=== PATIENT | female | born 1975 | race Caucasian/White ===

== ENCOUNTER → 2017-09-03 | Outpatient (CLI) | payer MEDICAID ==
--- NOTE | 2017-09-03 14:35 | MM ---
Reason for exam: follow-up at short interval from prior study. Last mammogram was performed 10 months ago. History: Family history of breast cancer in grandmother and breast cancer in aunt. Took hormonal contraceptives for 12 years beginning at age 17. Physical Findings: Nurse did not find any significant physical abnormalities on exam. MG 3D Diag Mammo W/Cad [facility] Bilateral CC and MLO view(s) were taken. Prior study comparison: November 06, 2016, bilateral MG 3d screening mammo w/cad. August 15, 2009, bilateral diagnostic digital mammog. The breast tissue is heterogeneously dense. This may lower the sensitivity of mammography. No suspicious abnormality in the left breast. The previously seen focal asymmetry in the upper outer quadrant on right breast a a middle depth is less conspicuous than on the prior exam and likely benign. These results were verbally communicated with the patient and result sheet given to the patient on 09/03/17. ASSESSMENT: Probably benign, BI-RAD 3 RECOMMENDATION: Follow-up diagnostic mammogram of the right breast in 6 months.
== END | disposition home or self-care (01) ==
LOC: RADMAMWWP 13:36
PROVIDERS: ATTEND Internal Medicine
DX: R92.8 Other abnormal and inconclusive findings on diagnostic imaging of breast (principal)
CPT/HCPCS: G0204; G0279

== ENCOUNTER → 2018-05-06 | Outpatient (CLI) | payer MEDICAID ==
--- NOTE | 2018-05-06 14:37 | MM ---
Reason for exam: follow-up at short interval from prior study. Last mammogram was performed 8 months ago. History: Family history of breast cancer in grandmother and breast cancer in aunt. Took hormonal contraceptives for 12 years beginning at age 17. Physical Findings: Nurse Summary: less than 1cm nodule in the left breast at 5 o'clock (nurse kp). MG 3D Diag Mammo W/Cad RT CC and MLO view(s) were taken of the right breast. Prior study comparison: September 03, 2017, bilateral MG 3d diag mammo w/cad [facility]. November 06, 2016, bilateral MG 3d screening mammo w/cad. The breast tissue is heterogeneously dense. This may lower the sensitivity of mammography. There is no discrete abnormality including area of concern. These results were verbally communicated with the patient and result sheet given to the patient on 05/06/18. ASSESSMENT: Incomplete: need additional imaging evaluation, BI-RAD 0 RECOMMENDATION: Ultrasound of the right breast. Manage patient on a clinical basis.
--- NOTE | 2018-05-06 14:38 | USB ---
Reason for exam: additional evaluation requested from abnormal screening. History: Family history of breast cancer in grandmother and breast cancer in aunt. Took hormonal contraceptives for 12 years beginning at age 17. US Breast Limited RT Right limited breast ultrasound including focal area of concern, retroareolar and axilla demonstrates no cystic or solid lesion seen. These results were verbally communicated with the patient and result sheet given to the patient on 05/06/18. ASSESSMENT: Negative, BI-RAD 1 RECOMMENDATION: Routine screening mammogram of both breasts in 4 months. Back on schedule. Manage patient on a clinical basis.
== END | disposition home or self-care (01) ==
LOC: RADMAMWWP 04-15 13:30
PROVIDERS: ATTEND Internal Medicine
DX: R92.8 Other abnormal and inconclusive findings on diagnostic imaging of breast (principal)
CPT/HCPCS: 77061; 77065

== ENCOUNTER 2018-12-14 06:12 | Day surgery (SDC) | payer MEDICAID ==
[2018-12-09 13:28] VITALS: BMI 23.1
--- NOTE | 2018-12-10 13:58 | HP ---
HISTORY AND PHYSICAL DATE OF SURGERY: 12/14/2018 HISTORY OF PRESENT ILLNESS: The patient is a 43-year-old 2, para 2-0-0-2, who presented to the office with a relatively longstanding history of menorrhagia. She has been using Lysteda for control of her bleeding for some time, which has worked to some extent but has requested a more definitive therapy. Her partner does have a vasectomy. Endometrial biopsy performed in the office demonstrated benign findings. PAST MEDICAL HISTORY: None. PAST SURGICAL HISTORY: Significant for arthroscopy of her right knee in the past as well a hernia repair in the distant past. She additionally had retinal keratotomy and a tonsillectomy as well as venous stripping for varicosities. She denies any anesthetic concerns. OBSTETRICAL HISTORY: 2, para 2-0-0-2 with 2 term vaginal deliveries without complications. Method of contraception is vasectomy. GYNECOLOGIC HISTORY: Unremarkable with no history of any infections to include STDs. FAMILY HISTORY: Noncontributory. 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 She is a nonsmoker and reports only occasional alcohol with no other social concerns. CURRENT MEDICATIONS: Lysteda 650 mg, 2 tablets t.i.d. for up to 5 days during menses. ALLERGIES: No known drug allergies. REVIEW OF SYSTEMS: Confined to history of present illness. PHYSICAL EXAMINATION: Vital signs are stable and the patient is afebrile. In general, this is a well- developed, well-nourished white female in no acute distress. Her heart has a regular rhythm and rate without murmur. Her lungs are clear to auscultation bilaterally in all benitez. Her abdomen is nondistended, has normoactive bowel sounds, soft, nontender, and without any palpable masses, hepatosplenomegaly, or hernias. Her extremities are without any cyanosis, clubbing, or edema and are nontender to palpation bilaterally. Pelvic examination demonstrates normal external genitalia and BUS with normal vaginal mucosa and cervix. There is no cervical motion tenderness. Uterus is 5 weeks' in size, anteverted, mobile, nontender, and normal in shape, though there was a possible suggestion of a fundal fibroid. At biopsy, the uterus sounded to approximately 8 cm. ASSESSMENT AND PLAN: Menorrhagia: The patient has a clear understanding that there are multiple different treatments aside from surgery, but has requested more definitive surgical intervention with diagnostic hysteroscopy and NovaSure endometrial ablation. The risks of these procedures were discussed at length to include the risks for bleeding, bleeding requiring transfusion, infection, and injury to local structures, most specifically uterine perforation, Asherman syndrome, and subsequent hematometra. She has understood all this concern and has agreed to proceed. We are scheduled for surgery on the morning of Friday, December 14, 2018 for the diagnoses as outlined above. MMODL / IJN: [id number] /
[~2018-12-14 06:12] MED LIST: DEXAMETHASONE SOD PHOSPHATE 10 MG/ML 1 ML VIAL IV ONE; LACTATED RINGERS 1,000 ML IV SCH; LIDOCAINE 1% 20 ML VIAL (10MG/ML) FOR IV START INTRADERMA PRN; ONDANSETRON 4 MG/2 ML VIAL IVP ONE; Pre Op ABX Message 1 EACH MISC MISCELLANE ONE; SCOPOLAMINE 1.5MG/72HR PATCH TRANSDERM ONE
[2018-12-14] MEDS ORDERED: LACTATED RINGERS 1,000 ML IV ONE ×2 (06:30→08:12)
[2018-12-14] MEDS ORDERED: LIDOCAINE 1% INJ 10MG/ML (20 ML MDV) ONE (07:31)
[2018-12-14] MEDS ORDERED: fentaNYL (PF) 50 MCG/ML 2 ML AMP ONE (07:31)
[2018-12-14] MEDS ORDERED: KETOROLAC 30 MG/ML 1 ML VIAL ONE (07:31)
[2018-12-14] MEDS ORDERED: MIDAZOLAM 2 MG/2 ML VIAL ONE (07:31)
[2018-12-14] MEDS ORDERED: PROPOFOL 10 MG/ML 20 ML VIAL IV ONE (07:31)
[2018-12-14 08:29] VITALS: TEMP 97.1
[2018-12-14 08:38] VITALS: RESP 16
--- NOTE | 2018-12-14 09:21 | OP ---
Date of Procedure: 12/14/18 Preoperative Diagnosis: #1. Menorrhagia Postoperative Diagnosis: Same Procedure(s) Performed: #1. Diagnostic hysteroscopy #2. NovaSure endometrial ablation Anesthesia: other (Gen. by face mask) Surgeon: Huseyin Enriquez Estimated Blood Loss (ml): 5 IV fluids (ml): 700 Urine output (ml): 75 Pathology: none sent Condition: stable Disposition: PACU Operative Findings: Preoperative pelvic examination demonstrated a roughly 5-6 week midplane mobile normal shaped uterus with normal adnexa bilaterally. Intraoperatively, the cervix was 4 cm in length was uterus sounded to approximately 10 cm. The hysteroscopic view of the uterus demonstrated a moderate amount of blood in the cavity as she was on her menses. The tubal ostia were not seen but there was no apparent pathology throughout. The settings for the NovaSure tool where a length of 6.0 cm, a width of 3.8 cm, and a total power of 125 W. Prior to successful application of the NovaSure tool, 2 tools were previously placed and set with cavity checks past but failed. The first tool failed secondary to vacuum failure on 3 separate occasions. It was replaced with a second 20 which failed secondary to a light on the base unit reading array position that would not allow the tool to unable. The third tool with the settings as above was successful. After a run time of 42 seconds, the base unit read "procedure complete." The postprocedural result was good but there was still some blood seen in the cavity. The patient is a potential candidate for vaginal hysterectomy should become necessary. Description of Procedure: The patient was prepped and draped in usual fashion after general anesthesia was administered by the anesthesiologist. A weighted speculum was placed and the bladder was drained of approximately 75 mL of clear mariama urine. The cervix was sent for 72 while uterus sounded to approximately 10 cm. Serial dilation was carried out to admit the diagnostic hysteroscope which was placed to the fundus and distended with saline. The bilateral tubal ostia regions were seen but there was clot and blood in the admixture making ClearView of them impossible. There was no apparent pathology to include polyps or fibroids. The scope was set aside and the the NovaSure tool placed and seated well. After seating, the cavity check was attempted and passed and the tool enabled. The run was started and the base unit then read vacuum failure. The tool was really enabled after second cavity check and the base unit again read "vacuum failure." The 2 was discarded and the second tool placed within the cavity. After the tool was placed and opened and the settings were made, the cavity check was attempted and passed without difficulty. The tool was enabled and we were unable to start the run as the base unit read "array position" failure. Another attempt was made and the tool again read array position failure. A third to was then used and placed into the endometrial cavity and opened with the settings of 6.0 for a length, 3.84 with for a total power 125 W. The tool was enabled and the run was started. After total run time of 42 seconds, the base unit read "procedure complete." The 2 was removed and discarded and the diagnostic hysteroscope placed in the fundus. The procedure appeared to be good thorough not particularly typical. There was still some blood present within the cavity. The montague did appear to be well charred. The scope was removed and set aside an Allis her mentation removed as well. There was no ongoing bleeding from either the cervix or from the tenaculum points. Estimated blood loss for the case was less than 5 mL. There were no complications aside from the failure of the first 2 tools. All sponge, instrument, and needle counts were correct. The patient tolerated the procedure well and proceeded to the recovery room in stable condition. KEN
[2018-12-14] MEDS ORDERED: IBUPROFEN 600 MG TAB PO PRN (09:24)
[2018-12-14] MEDS ORDERED: KETOROLAC 30 MG/ML 1 ML VIAL IVP PRN (09:24)
[2018-12-14] MEDS ORDERED: METOCLOPRAMIDE 5 MG/ML 2 ML VIAL IVP PRN (09:24)
[2018-12-14] MEDS ORDERED: ONDANSETRON 4 MG/2 ML VIAL IVP PRN (09:24)
[2018-12-14] MEDS ORDERED: Acetaminophen-Codeine 300-30mg TAB PO PRN ×2 (09:24)
[2018-12-14] MEDS ORDERED: diphenhydrAMINE 50 MG/ML 1 ML VIAL IVP PRN (09:24)
[2018-12-14] MEDS ORDERED: SIMETHICONE 80 MG CHEWABLE PO PRN (09:24)
[2018-12-14] MEDS ORDERED: LACTATED RINGERS 1,000 ML IV SCH (09:30)
[2018-12-14 09:37] VITALS: PULSE 74
[2018-12-14 09:43] VITALS: BP 116/75
== END 2018-12-14 10:04 | disposition home or self-care (01) ==
LOC: OR 06:12
PROVIDERS: ATTEND Obstetrics & Gynecology
DX: N92.0 Excessive and frequent menstruation with regular cycle (principal); Z79.899 Other long term (current) drug therapy
CPT/HCPCS: 81025; 58563; J2250; J1100; J2405; J2001; J3010; J1885; J2704

== ENCOUNTER → 2019-12-08 | Outpatient (CLI) | payer MEDICAID ==
--- NOTE | 2019-12-09 11:11 | MM ---
Reason for exam: screening (asymptomatic). Last mammogram was performed 1 year and 7 months ago. History: Family history of breast cancer in grandmother and breast cancer in aunt. Took hormonal contraceptives for 2 years beginning at age 17. Physical Findings: A clinical breast exam by your physician is recommended on an annual basis and results should be correlated with mammographic findings. MG 3D Screening Mammo W/Cad Bilateral CC and MLO view(s) were taken. Prior study comparison: May 06, 2018, right breast MG 3d diag mammo w/cad RT. September 03, 2017, bilateral MG 3d diag mammo w/cad [facility]. The breast tissue is heterogeneously dense. This may lower the sensitivity of mammography. No suspicious abnormality. No significant changes when compared with prior studies. ASSESSMENT: Negative, BI-RAD 1 RECOMMENDATION: Routine screening mammogram of both breasts in 1 year.
== END | disposition home or self-care (01) ==
LOC: RADMAMWWP 13:18
PROVIDERS: ATTEND Internal Medicine
DX: Z12.31 Encounter for screening mammogram for malignant neoplasm of breast (principal); Z80.3 Family history of malignant neoplasm of breast
CPT/HCPCS: 77063; 77067

== ENCOUNTER → 2020-10-04 | Outpatient (CLI) | payer MEDICAID | END | disposition home or self-care (01) | LOC: LABWHC1 12:58 | PROVIDERS: ATTEND Pediatrics Pediatric Infectious Diseases | DX: Z03.818 Encounter for observation for suspected exposure to other biological agents ruled out (principal) | CPT/HCPCS: 87635; C9803 ==

== ENCOUNTER → 2020-10-05 | Outpatient (CLI) | payer MEDICAID | END | disposition home or self-care (01) | LOC: LABWHC1 14:12 | PROVIDERS: ATTEND Pediatrics Pediatric Infectious Diseases | DX: Z03.818 Encounter for observation for suspected exposure to other biological agents ruled out (principal); Z20.828 Contact with and (suspected) exposure to other viral communicable diseases | CPT/HCPCS: 87635; C9803 ==

== ENCOUNTER → 2020-12-20 | Outpatient (CLI) | payer MEDICAID ==
--- NOTE | 2020-12-25 08:45 | MM ---
Reason for exam: screening (asymptomatic). Last mammogram was performed 1 year ago. History: Family history of breast cancer in grandmother and breast cancer in aunt. Taking hormonal contraceptives beginning at age 17. Physical Findings: A clinical breast exam by your physician is recommended on an annual basis and results should be correlated with mammographic findings. MG 3D Screening Mammo W/Cad Bilateral CC and MLO view(s) were taken. Prior study comparison: December 08, 2019, bilateral MG 3d screening mammo w/cad. May 06, 2018, right breast MG 3d diag mammo w/cad RT. The breast tissue is heterogeneously dense. This may lower the sensitivity of mammography. No significant changes when compared with prior studies. ASSESSMENT: Benign, BI-RAD 2 RECOMMENDATION: Routine screening mammogram of both breasts in 1 year.
== END | disposition home or self-care (01) ==
LOC: RADMAMWWP 07:18
PROVIDERS: ATTEND Obstetrics & Gynecology
DX: Z12.31 Encounter for screening mammogram for malignant neoplasm of breast (principal)
CPT/HCPCS: 77063; 77067

== ENCOUNTER → 2022-02-26 | Outpatient (CLI) | payer MEDICAID ==
--- NOTE | 2022-02-27 10:21 | MM ---
Reason for exam: screening (asymptomatic). Last mammogram was performed 1 year and 2 months ago. History: Family history of breast cancer in sister at age 40, breast cancer in grandmother, and breast cancer in aunt. Taking hormonal contraceptives beginning at age 17. Physical Findings: A clinical breast exam by your physician is recommended on an annual basis and results should be correlated with mammographic findings. MG 3D Screening Mammo W/Cad Bilateral CC and MLO view(s) were taken. Prior study comparison: December 20, 2020, bilateral MG 3d screening mammo w/cad. September 03, 2017, bilateral MG 3d diag mammo w/cad [facility]. The breast tissue is heterogeneously dense. This may lower the sensitivity of mammography. There is no discrete abnormality. ASSESSMENT: Negative, BI-RAD 1 RECOMMENDATION: Routine screening mammogram of both breasts in 1 year.
== END | disposition home or self-care (01) ==
LOC: RADMAMWWP 15:45
PROVIDERS: ATTEND Internal Medicine
DX: Z12.31 Encounter for screening mammogram for malignant neoplasm of breast (principal); Z80.3 Family history of malignant neoplasm of breast
CPT/HCPCS: 77063; 77067

== ENCOUNTER → 2022-04-17 | Outpatient (CLI) | payer MEDICAID ==
--- NOTE | 2022-04-17 16:49 | US ---
EXAMINATION TYPE: US venous doppler duplex LE DATE OF EXAM: 04/17/2022 10:39 AM COMPARISON: NONE CLINICAL HISTORY: M79.89 SWELLING. Bilateral leg swelling x 3 days SIDE PERFORMED: Bilateral TECHNIQUE: The lower extremity deep venous system is examined utilizing real time linear array sonog magaly with graded compression, doppler sonography and color-flow sonography. VESSELS IMAGED: Common Femoral Vein Deep Femoral Vein Greater Saphenous Vein * Femoral Vein Popliteal Vein Small Saphenous Vein * Proximal Calf Veins (* superficial vessels) Right Leg: Appears negative for DVT Left Leg: Appears negative for DVT IMPRESSION: 1. Bilateral lower extremity ultrasound negative for deep venous thrombosis.
== END | disposition home or self-care (01) ==
LOC: RADUSWWP 10:11
PROVIDERS: ATTEND Internal Medicine
DX: M79.89 Other specified soft tissue disorders (principal)
CPT/HCPCS: 93970

== ENCOUNTER → 2022-05-29 | Outpatient (CLI) | payer MEDICAID ==
--- NOTE | 2022-05-29 12:19 | CA ---
Stress Echo Report Jennifer Mallory Age: 46 Gender: F : 1975 Exam Date: 05/29/2022 10:20 Exam Location: [place] Stress Ht (in): 67 Wt (lb): 200 Ordering Physician: Cody Maki MD Referring Physician: AAMIR, [facility] Nurse Practitioner: Michelle Agee RD Technologist Procedure CPT: Indication: R07.9 ICD-9 Codes: Rhythm: Patient History: Cardiac Medications: Medications in past 24 hours: Contrast: Stress Results Protocol: Faraz Total dose(mL): Exercise Duration (min:sec): 7:[address] Depression (mm): Angina Score: Clayton Score: METS: 9.1 Resting HR: 78 Resting BP: 120 / 70 Peak HR: 166 Peak BP: 200 / 81 Max Predicted HR: 175 95 % Max Predicted HR Target HR: 149 Double Product: [id number] Stress Summary: BP Response: Reason for Termination: Reached target hr. Cardiac Symptoms: No symtoms ECG Analysis Resting ECG: Normal sinus rhythm normal axis normal intervals Stress ECG: No evidence of ST segment depression Arrhythmia: Grade PVCs Echo Analysis Resting Echo: Normal left ventricular size wall motion systolic function Peak Echo Analysis: There is normal hyperdynamic response of the anterior wall lateral wall septum Exercise induced hypokinesis involving basilar and mid inferior wall MEASUREMENTS (Male/Female) Normal Values CONCLUSIONS average exercise tolerance Negative stress test by EKG criteria Abnormal stress echo Dr. Too Llanes MD (Electronically Signed) Final Date: 29 May 2022 12:18
== END | disposition home or self-care (01) ==
LOC: RADNMMAIN 09:48
PROVIDERS: ATTEND Internal Medicine
DX: R94.39 Abnormal result of other cardiovascular function study (principal)
CPT/HCPCS: 93351

== ENCOUNTER → 2022-08-12 | Outpatient (CLI) | payer MEDICAID ==
[2022-08-12 14:44] LABS: HCT 38.7 % (37.2-46.3); HGB 12.5 g/dL (12.0-15.0); MCHC 32.3 g/dL (32.0-37.0); MCV 86.6 fL (80.0-97.0); Mean Platelet Volume 10.4 fL (9.5-12.2); NRBC Per 100 WBC 0 /100 WBCS (0.0-0.0); Platelet Count 228 X 10*3/uL (140-440); RBC 4.47 X 10*6/uL (4.10-5.20); WBC 6.69 X 10*3/uL (4.50-10.00)
[2022-08-12 14:57] LABS: ALT 57 U/L (8-44); AST 37 U/L (13-35); African American GFR (CKD) 88.9 (60.0-200.0); Albumin 4.4 g/dL (3.8-4.9); Albumin/Globulin Ratio 1.63 (1.60-3.17); Alkaline Phosphatase 71 U/L (41-126); BUN/Creat Ratio 11.33 Ratio (12.00-20.00); Blood Urea Nitrogen 10.2 mg/dL (9.0-27.0); Calcium 9.5 mg/dL (8.7-10.3); Carbon Dioxide 23.1 mmol/L (20.0-27.5); Chloride 103 mmol/L (96-109); Chol/HDL Ratio 5.92 Ratio; Globulin 2.7 g/dL (1.6-3.3); Glucose 108 mg/dL (70-110); LDL Cholesterol,Calculated 155.1 mg/dL (0.0-131.0); Non-African American GFR(CKD) 76.7 (60.0-200.0); Potassium 4.2 mmol/L (3.5-5.5); Sodium 138 mmol/L (135-145); Total Protein 7.1 g/dL (6.2-8.2)
[2022-08-12 15:05] LABS: Appearance,Urine Clear (Clear); Bilirubin,Urine Negative (Negative); Blood,Urine Negative (Negative); Color,Urine Yellow (Yellow); Ketones,Urine Negative (Negative); Nitrite,Urine Negative (Negative); PH, Urine 5.5 (5.0-8.0); Specific Gravity,Urine 1.019 (1.001-1.030); Urobilinogen,Urine 0.2 (0.2,1.0)
== END | disposition home or self-care (01) ==
LOC: LABMAIN 07:13
PROVIDERS: ATTEND Internal Medicine
DX: Z00.00 Encounter for general adult medical examination without abnormal findings (principal); E78.2 Mixed hyperlipidemia
CPT/HCPCS: 36415; 80053; 80061; 81003; 84443; 85027

== ENCOUNTER → 2022-12-31 | Outpatient (CLI) | payer MEDICAID ==
[2022-12-31 12:41] LABS: Appearance,Urine Clear (Clear); Bilirubin,Urine Negative (Negative); Blood,Urine Negative (Negative); Color,Urine Yellow; Glucose,Urine (UA) Negative (Negative); Ketones,Urine Negative (Negative); Leukocyte Esterase,Urine Negative (Negative); Nitrite,Urine Negative (Negative); Protein,Urine Negative (Negative); Specific Gravity,Urine 1.023 (1.001-1.035); Urobilinogen,Urine <2.0 mg/dL (<2.0)
[2022-12-31 18:38] LABS: HCT 39.1 % (37.2-46.3); HGB 12.8 g/dL (12.0-15.0); MCH 28.7 pg (27.0-32.0); MCHC 32.7 g/dL (32.0-37.0); MCV 87.7 fL (80.0-97.0); Mean Platelet Volume 10.4 fL (9.5-12.2); NRBC Per 100 WBC 0 /100 WBCS (0.0-0.0); Platelet Count 215 X 10*3/uL (140-440); RBC 4.46 X 10*6/uL (4.10-5.20); RDW 13.5 % (11.5-14.5)
[2022-12-31 19:16] LABS: ALT 79 U/L (8-44); AST 42 U/L (13-35); African American GFR (CKD) 91.8 (60.0-200.0); Albumin 4.5 g/dL (3.8-4.9); Albumin/Globulin Ratio 1.86 (1.60-3.17); Alkaline Phosphatase 84 U/L (41-126); Blood Urea Nitrogen 12.7 mg/dL (9.0-27.0); Calcium 9.8 mg/dL (8.7-10.3); Carbon Dioxide 24.8 mmol/L (20.0-27.5); Chloride 101 mmol/L (96-109); Chol/HDL Ratio 4.91 Ratio; Globulin 2.4 g/dL (1.6-3.3); Glucose 134 mg/dL (70-110); LDL Cholesterol,Calculated 139.6 mg/dL (0.0-131.0); Non-African American GFR(CKD) 79.2 (60.0-200.0); Potassium 3.7 mmol/L (3.5-5.5); Sodium 139 mmol/L (135-145)
== END | disposition home or self-care (01) ==
LOC: LABWHC1 11:26
PROVIDERS: ATTEND Family Medicine
DX: Z00.00 Encounter for general adult medical examination without abnormal findings (principal); E66.9 Obesity, unspecified; R73.03 Prediabetes
CPT/HCPCS: 36415; 80053; 80061; 81003; 82306; 83036; 84443; 85027

== ENCOUNTER → 2023-02-27 | Outpatient (CLI) | payer MEDICAID ==
--- NOTE | 2023-02-28 08:41 | MM ---
Reason for Exam: Screening (asymptomatic). Last screening mammogram was performed 12 month(s) ago. Patient History: Menarche at age 13. First Full-Term at age 19. Premenopausal. Currently using Hormonal Contraceptives, starting at age 17. Maternal grandmother had breast cancer. Maternal aunt had breast cancer. Sister had breast cancer, age 40. Last menstrual period: 02/17/2023 Risk Values: Yenifer 5 year model risk: 1.6%. NCI Lifetime model risk: 16.9%. Prior Study Comparison: 12/08/2019 Bilateral Screening Mammogram, [facility]. 12/20/2020 Bilateral Screening Mammogram, [facility]. 02/26/2022 Bilateral Screening Mammogram, [facility]. Tissue Density: The breast tissue is heterogeneously dense. This may lower the sensitivity of mammography. Findings: Analyzed By CAD. There is no suspicious group of microcalcifications or new suspicious mass in either breast. Overall Assessment: Negative, BI-RAD 1 Management: Screening Mammogram of both breasts in 1 year. A clinical breast exam by your physician is recommended on an annual basis and results should be correlated with mammographic findings. Electronically signed and approved by: Deniz Elias M.D.
== END | disposition home or self-care (01) ==
LOC: RADMAMWWP 15:17
PROVIDERS: ATTEND Family Medicine
DX: Z12.31 Encounter for screening mammogram for malignant neoplasm of breast (principal); Z80.3 Family history of malignant neoplasm of breast
CPT/HCPCS: 77063; 77067

== ENCOUNTER → 2023-04-02 | Outpatient (CLI) | payer MEDICAID ==
[2023-04-02 20:49] LABS: African American GFR (CKD) 73.8 (60.0-200.0); Anion Gap 13.1 mmol/L (10.00-18.00); BUN/Creat Ratio 11.14 Ratio (12.00-20.00); Blood Urea Nitrogen 11.7 mg/dL (9.0-27.0); Calcium 9.9 mg/dL (8.7-10.3); Carbon Dioxide 26.9 mmol/L (20.0-27.5); Non-African American GFR(CKD) 63.6 (60.0-200.0); Potassium 3.6 mmol/L (3.5-5.5)
== END | disposition home or self-care (01) ==
LOC: LABWHC1 14:15
PROVIDERS: ATTEND Family Medicine
DX: E11.9 Type 2 diabetes mellitus without complications (principal); K76.9 Liver disease, unspecified
CPT/HCPCS: 36415; 80048; 82043; 82570; 82977; 84450; 84460

== ENCOUNTER → 2023-07-03 | Outpatient (CLI) | payer MEDICAID ==
[2023-07-03 10:53] LABS: ALT 39 U/L (4-34); AST 33 U/L (14-36); African American GFR (CKD) >90 (>60 ml/min/1.73 sqM); Anion Gap 7 mmol/L; Blood Urea Nitrogen 12 mg/dL (7-17); Calcium 9.3 mg/dL (8.4-10.2); Carbon Dioxide 27 mmol/L (22-30); Chloride 105 mmol/L (98-107); Glucose 92 mg/dL (74-99); Non-African American GFR(CKD) 88 (>60 ml/min/1.73 sqM); Potassium 4.7 mmol/L (3.5-5.1); Sodium 139 mmol/L (137-145)
[2023-07-03 17:10] LABS: Chol/HDL Ratio 4.15 Ratio; LDL Cholesterol,Calculated 110.2 mg/dL (0.0-131.0); VLDL Calculation 12.82 mg/dL (5.00-40.00)
== END | disposition home or self-care (01) ==
LOC: LABWHC1 07:20
PROVIDERS: ATTEND Family Medicine
DX: E11.9 Type 2 diabetes mellitus without complications (principal); E78.5 Hyperlipidemia, unspecified
CPT/HCPCS: 36415; 80048; 80061; 83036; 84450; 84460

== ENCOUNTER → 2024-04-14 | Outpatient (CLI) | payer MEDICAID ==
[2024-04-14 14:30] LABS: Basophils # (A) 0.02 X 10*3/uL (0.00-0.10); Basophils % (A) 0.4 %; Eosinophils # (A) 0.06 X 10*3/uL (0.04-0.35); Eosinophils % (A) 1.1 %; HCT 39.5 % (37.2-46.3); HGB 13.1 g/dL (12.0-15.0); Lymphocytes % (A) 34.4 %; MCH 29.4 pg (27.0-32.0); MCHC 33.2 g/dL (32.0-37.0); MCV 88.8 FL (80.0-97.0); Mean Platelet Volume 10.7 FL (9.5-12.2); Monocytes # (A) 0.31 X 10*3/uL (0.20-1.00); Monocytes % (A) 5.6 %; NRBC Per 100 WBC 0 X 10*3/uL (0.00-0.01); Neutrophils # (A) 3.22 X 10*3/uL (1.80-7.70); Neutrophils % (A) 58.3 %; Platelet Count 208 X 10*3/uL (140-440); RBC 4.45 X 10*6/uL (4.10-5.20); RDW 13.1 % (11.5-14.5); WBC 5.52 X 10*3/uL (4.50-10.00)
[2024-04-14 14:55] LABS: Carbon Dioxide 25.9 mmol/L (21.6-31.8); Chloride 104 mmol/L (96-109); Glucose 84 mg/dL (70-110); Potassium 4.3 mmol/L (3.5-5.5); Sodium 141 mmol/L (135-145)
== END | disposition home or self-care (01) ==
LOC: LABPAT 08:09
PROVIDERS: ATTEND Obstetrics & Gynecology
DX: Z01.812 Encounter for preprocedural laboratory examination (principal); N92.1 Excessive and frequent menstruation with irregular cycle
CPT/HCPCS: 80051; 82565; 82947; 84520; 85025; 86850; 86900; 86901; 87086

== ENCOUNTER → 2024-04-16 | Outpatient (CLI) | payer MEDICAID | END | disposition home or self-care (01) | LOC: LABPAT 06:55 | PROVIDERS: ATTEND Obstetrics & Gynecology | DX: Z01.818 Encounter for other preprocedural examination (principal); E11.9 Type 2 diabetes mellitus without complications | CPT/HCPCS: 93005 ==

== ENCOUNTER → 2024-05-05 | Outpatient (CLI) | payer MEDICAID ==
[2024-05-05 16:26] LABS: % Iron Saturation 15.59 (12.00-45.00); Ferritin 85.7 ng/mL (10.0-291.0)
[2024-05-05 16:27] LABS: Basophils # (A) 0.05 X 10*3/uL (0.00-0.10); Basophils % (A) 0.4 %; Eosinophils # (A) 0.11 X 10*3/uL (0.04-0.35); Eosinophils % (A) 0.9 %; HCT 39.2 % (37.2-46.3); HGB 12.6 g/dL (12.0-15.0); Lymphocytes % (A) 15.6 %; MCH 28.8 pg (27.0-32.0); MCHC 32.1 g/dL (32.0-37.0); MCV 89.7 FL (80.0-97.0); Monocytes # (A) 0.58 X 10*3/uL (0.20-1.00); Monocytes % (A) 4.5 %; NRBC Per 100 WBC 0 X 10*3/uL (0.00-0.01); Neutrophils # (A) 10.01 X 10*3/uL (1.80-7.70); Neutrophils % (A) 77.7 %; Platelet Count 436 X 10*3/uL (140-440); RBC 4.37 X 10*6/uL (4.10-5.20); RDW 12.6 % (11.5-14.5); WBC 12.86 X 10*3/uL (4.50-10.00)
== END | disposition home or self-care (01) ==
LOC: LABWHC1 09:06
PROVIDERS: ATTEND Physician Assistant
DX: D64.9 Anemia, unspecified (principal)
CPT/HCPCS: 36415; 82728; 83540; 83550; 85025

== ENCOUNTER → 2024-06-23 | Outpatient (CLI) | payer MEDICAID ==
[2024-06-23 15:01] LABS: HCT 41.9 % (37.2-46.3); HGB 13.7 g/dL (12.0-15.0); MCH 28.2 pg (27.0-32.0); MCHC 32.7 g/dL (32.0-37.0); MCV 86.4 FL (80.0-97.0); Mean Platelet Volume 10.4 FL (9.5-12.2); NRBC Per 100 WBC 0 X 10*3/uL (0.00-0.01); Platelet Count 226 X 10*3/uL (140-440); RBC 4.85 X 10*6/uL (4.10-5.20); RDW 13.2 % (11.5-14.5); WBC 5.41 X 10*3/uL (4.50-10.00)
[2024-06-23 15:07] LABS: Appearance,Urine Clear (Clear); Bilirubin,Urine Negative (Negative); Blood,Urine Negative (Negative); Color,Urine Yellow (Yellow); Ketones,Urine Negative (Negative); Nitrite,Urine Negative (Negative); PH, Urine 5.5; Specific Gravity,Urine 1.025 (1.001-1.030); Urobilinogen,Urine 0.2 E.U./DL
[2024-06-23 15:34] LABS: ALT 19 U/L (8-44); AST 19 U/L (13-35); Albumin 4.9 g/dL (3.8-4.9); Albumin/Globulin Ratio 1.88 Ratio (1.60-3.17); Alkaline Phosphatase 65 U/L (41-126); BUN/Creat Ratio 19.67 Ratio (12.00-20.00); Blood Urea Nitrogen 17.7 mg/dL (9.0-27.0); Calcium 9.9 mg/dL (8.7-10.3); Carbon Dioxide 25.4 mmol/L (21.6-31.8); Chloride 100 mmol/L (96-109); Globulin 2.6 g/dL (1.6-3.3); Glucose 95 mg/dL (70-110); LDL Cholesterol,Calculated 144.6 mg/dL (0.0-131.0); Potassium 4.5 mmol/L (3.5-5.5); Sodium 139 mmol/L (135-145); Total Bilirubin 0.5 mg/dL (0.3-1.2); Total Protein 7.5 g/dL (6.2-8.2); VLDL Calculation 12.28 mg/dL (5.00-40.00)
[2024-06-23 21:46] LABS: Microalbumin Creatinine Ratio <5 mg/g Cr (0-30)
== END | disposition home or self-care (01) ==
LOC: LABWHC1 05:23
PROVIDERS: ATTEND Family Medicine
DX: Z00.00 Encounter for general adult medical examination without abnormal findings (principal); E11.9 Type 2 diabetes mellitus without complications; R63.8 Other symptoms and signs concerning food and fluid intake
CPT/HCPCS: 36415; 80053; 80061; 81003; 82043; 82306; 82570; 82607; 82746; 83036; 84443; 85027